=== PATIENT | male | born 1960 | race Caucasian/White ===

== ENCOUNTER 2018-04-17 08:46 | Emergency (ER) | payer MEDICARE, MEDICAID ==
[~2018-04-17] VITALS: Ht 172.7 cm; Wt 69.0 kg
[2018-04-17 08:48] VITALS: BP 147/85
[2018-04-17] MEDS ORDERED: acetaminophen 325mg tablet PO ONE (08:55)
== END 2018-04-17 09:19 | disposition home or self-care (01) ==
LOC: ER 08:47
DX: K40.90 Unilateral inguinal hernia, without obstruction or gangrene, not specified as recurrent (principal); G89.29 Other chronic pain; M54.5 Low back pain; Z59.0 Homelessness
CPT/HCPCS: 99283